=== PATIENT | female | born 1995 | race Two or more races ===

== ENCOUNTER → 2024-06-25 | Day surgery (SDC) | payer OTHER ==
[~2024-06-25] VITALS: Ht 165.1 cm; Wt 86.2 kg
[~2024-06-25] MED LIST: DEXAMETHASONE SODIUM PHOSPHATE 4 MG/ML VIAL ONE; KETO10TA2 PO; NAPRELAN500 M1 PO; ONDANSETRON HCL 2 MG/ML VIAL ONE; SUGAMMADEX SODIUM 200 MG/2 ML VIAL IV ONE
== END | disposition home or self-care (01) ==
LOC: ADM 06-19 11:00 → CIR.AMB 05:15
PROVIDERS: ATTEND Otolaryngology
DX: J35.01 Chronic tonsillitis (principal); Z88.0 Allergy status to penicillin